=== PATIENT | male | born 1975 | race African-American/Black ===

== ENCOUNTER 2020-05-21 08:35 | Emergency (ER) | payer SELFPAY ==
[~2020-05-21] VITALS: Ht 177.8 cm; Wt 87.0 kg
[2020-05-21 09:03] LABS: HEMATOCRIT. 42.8 % (42.0-52.0); HEMOGLOBIN. 14.7 g/dL (14.0-18.0); MEAN CORPUSCULAR HEMOGLOBIN 35.4 pg (28.0-32.0); MEAN CORPUSCULAR VOLUME 103.3 fL (80.0-94.0); MEAN PLATELET VOLUME 8.5 fl (7.4-10.4); PLATELET 146 x1000/uL (130-400); RED BLOOD CELL COUNT 4.14 mill/uL (4.7-6.1); RED CELL DISTRIBUTION WIDTH 14.1 % (11.6-14.6)
[2020-05-21 09:08] LABS: CHLORIDE 99 mEq/L (98-107)
[2020-05-21 09:15] LABS: ETHANOL BLOOD < 10 mg/dL
[2020-05-21 09:27] LABS: PLATELET ESTIMATE NORMAL
[2020-05-21 10:11] LABS: CLARITY URINE CLOUDY (CLEAR); COLOR URINE ORANGE (YELLOW); KETONES URINE 1+ (NEGATIVE); LEUKOCYTE ESTERASE URINE 1+ (NEGATIVE); NITRITE URINE NEGATIVE (NEGATIVE); OCCULT BLOOD URINE 1+ (NEGATIVE); PROTEIN URINE 2+ (NEGATIVE); SPECIFIC GRAVITY URINE 1.016 (1.005-1.030)
[2020-05-21 10:16] LABS: *COCAINE SCREEN URINE NEGATIVE (NEGATIVE); METHADONE URINE SCREEN NEGATIVE (NEGATIVE); OPIATES URINE SCREEN NEGATIVE (NEGATIVE); PHENCYCLIDINE URINE SCREEN NEGATIVE (NEGATIVE)
[2020-05-21 10:17] LABS: *AMPHETAMINES SCREEN URINE NEGATIVE (NEGATIVE); *BARBITURATES SCREEN URINE NEGATIVE (NEGATIVE); *BENZODIAZEPINES SCREEN URINE NEGATIVE (NEGATIVE); CANNABINOID URINE SCREEN NEGATIVE (NEGATIVE)
[2020-05-21] MEDS ORDERED: CEFTRIAXONE 1 G PREMIX 50 ML IV ONE (10:30)
[2020-05-21] MEDS ORDERED: POTASSIUM CHLORIDE 20MEQ TABLET SR PO NR (11:15)
[2020-05-21] MEDS ORDERED: AZITHROMYCIN 500 MG TABLET PO ONE (11:15)
[2020-05-21] MEDS ORDERED: SODIUM CHLORIDE 0.9% 1,000 ML IV ONE (12:44)
[2020-05-21 13:47] VITALS: BP 126/89
[2020-05-21] MEDS ORDERED: IOHEXOL-350 100 ML BOTTLE ONE (15:28)
== END 2020-05-21 13:50 | disposition home or self-care (01) ==
LOC: ER 08:45
DX: R56.9 Unspecified convulsions (principal); N39.0 Urinary tract infection, site not specified; I10 Essential (primary) hypertension
CPT/HCPCS: 36415; 70450; 71045; 71275; 76700; 80053; 80305; 80320; 81003; 83880; 84484; 85025; 85379; 93005; 96365; 99285; J0696; Q9967; G0480